=== PATIENT | male | born 1975 | race American Indian/Alaskan Native ===

== ENCOUNTER 2016-10-04 21:54 | Observation (INO) | payer OTHER ==
--- NOTE | 2016-10-04 22:57 | C.PDOC ---
History Of Present Illness 41 year old male presents to the ED with complaints of suicidal thoughts for two days but denies having a plan or homicidal ideations. Last heroin and alcohol use was two hours prior to arrival. Chief Complaint (Nursing): Psychiatric Evaluation History Per: Patient History/Exam Limitations: no limitations Onset/Duration Of Symptoms: Days (two days ) Current Symptoms Are (Timing): Still Present Suicide/Self Injury Attempted (Context): None Associated Symptoms: Suicidal Thoughts. denies: Suicidal Plan Involuntary Hold By: None Recent travel outside of the [place]: No Past Medical History Reviewed: Historical Data, Nursing Documentation, Vital Signs Vital Signs: Last Vital Signs Temp 98.5 F 10/06/16 06:58 Pulse 67 10/06/16 15:33 Resp 20 10/05/16 06:27 BP 137/75 10/06/16 15:33 Pulse Ox 99 10/06/16 06:58 - Medical History PMH: HTN Family History: States: Unknown Family Hx - Social History Hx Alcohol Use: Yes Hx Substance Use: Yes - Immunization History Hx Tetanus Toxoid Vaccination: No Hx Influenza Vaccination: No Hx Pneumococcal Vaccination: No Review Of Systems Constitutional: Negative for: Fever, Chills, Sweats Cardiovascular: Negative for: Chest Pain, Palpitations Respiratory: Negative for: Cough, Shortness of Breath Gastrointestinal: Negative for: Nausea, Vomiting, Abdominal Pain, Diarrhea Psych: Positive for: Suicidal ideation Physical Exam - Physical Exam Appears: Non-toxic, No Acute Distress Skin: Warm, Dry Head: Atraumatic Oral Mucosa: Moist Neck: Normal ROM, Supple Chest: Symmetrical, No Deformity Cardiovascular: Rhythm Regular Respiratory: No Rales, No Rhonchi, No Stridor, No Wheezing Gastrointestinal/Abdominal: Soft, No Tenderness, No Distention, No Guarding, No Rebound Extremity: Normal ROM, No Tenderness Neurological/Psych: Oriented x3 ED Course And Treatment - Laboratory Results Result Diagrams: 10/04/16 22:54 10/04/16 22:54 O2 Sat by Pulse Oximetry: 99 (room air ) Disposition Discussed With : Tiff Harley Doctor Will See Patient In The: Hospital Counseled Patient/Family Regarding: Diagnosis - Disposition Disposition: HOSPITALIZED Disposition Time: 05:57 Condition: STABLE - POA Present On Arrival: None - Clinical Impression Clinical Impression: Depression, Alcohol abuse - Scribe Statement The provider has reviewed the documentation as recorded by the Scribe Kassi [place] All medical record entries made by the Nelson were at my direction and personally dictated by me. I have reviewed the chart and agree that the record accurately reflects my personal performance of the history, physical exam, medical decision making, and the department course for this patient. I have also personally directed, reviewed, and agree with the discharge instructions and disposition.
[2016-10-04 23:01] LABS: BASO # 0.1 K/uL (0.0-0.2); BASO % 0.9 % (0.0-2.0); EOS # 0.4 K/uL (0.0-0.7); EOS % 3.2 % (0.0-4.0); HEMATOCRIT 41.1 % (35.0-51.0); LYMPH # 5.1 K/uL (1.0-4.3); LYMPH % 43.5 % (20.0-40.0); MEAN CELL VOLUME 79.8 fL (80.0-94.0); MEAN CORPUSCULAR HEMOGLOBIN 27.1 pg (27.0-31.0); MONO # 0.6 K/uL (0.0-0.8); MONO % 5.5 % (0.0-10.0); NRBC % 0.1 % (0.0-2.0); RED CELL DISTRIBUTION WIDTH 14.4 % (11.5-14.5); WHITE BLOOD COUNT 11.7 K/uL (4.8-10.8)
[2016-10-04 23:05] LABS: RBC URINE 1 /hpf (0-3); URINE BILIRUBIN NEGATIVE (NEGATIVE); URINE BLOOD NEGATIVE (NEGATIVE); URINE GLUCOSE (UA) NORMAL (Normal); URINE KETONE NEGATIVE (NEGATIVE); URINE LEUKOCYTE ESTERASE NEG Leu/uL (Negative); URINE PROTEIN 1+ mg/dL (NEGATIVE); WBC URINE 6 /hpf (0-5)
[2016-10-04 23:06] LABS: URINE COLOR YELLOW (YELLOW)
[2016-10-04 23:07] LABS: CHLORIDE 100 mmol/L (98-107); POTASSIUM 2.8 mmol/L (3.6-5.2); SODIUM 138 mmol/L (132-148)
[2016-10-04 23:09] LABS: AST/SGOT 51 U/L (17-59); BILIRUBIN,TOTAL 0.9 mg/dL (0.2-1.3); CARBON DIOXIDE 24 mmol/L (22-30); GFR AFRICAN-AMERICAN > 60
[2016-10-04 23:10] LABS: ALCOHOL SERUM 11 mg/dl (0-10); ALKALINE PHOSPHATASE 87 U/L (38-126); ALT/SGPT 77 U/L (21-72); BLOOD UREA NITROGEN 12 mg/dL (9-20); CALCIUM 8.5 mg/dl (8.6-10.4); GLUCOSE,RANDOM 106 mg/dL (75-110)
[2016-10-05 05:57] VITALS: O2SAT 99
[2016-10-06] MEDS: buPROPion 150 mg/24 Hours XL Tab PO SCH (09:27)
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
--- NOTE | 2016-10-07 01:51 | PCM.PYCHPN ---
Psychiatric Progress Note - Psychiatric Progress Note Patient seen today, length of contact: 15 MIN Patient Chief Complaint: II'M DOPE SICK! Problems Identified/Issues Discussed: WITHDRAWAL SYMPTOMS PAWS SYMPTOM MANAGEMENT Medical Problems: NOTHING ACUTE Diagnostic Results: REVIEWED DSM 5 Symptoms Update: INSOMNIA NO APPETITE Medication Change: Yes (INCREASE SEROQUEL. REMERON) Medical Record Reviewed: Yes Mental Status Examination - Cognitive Function Orientation: Person, Place, Situation, Time Memory: Intact Attention: Poor Concentration: Poor Association: WNL Fund of Knowledge: WNL - Mood Mood: Depressed, Anxious - Affect Affect: Constricted - Speech Speech: Appropriate - Formal Thought Process Formal Thought Process: No Impairment - Suicidal Ideation Suicidal Ideation: No Goal/Treatment Plan - Goal/Treatment Plan Need for Continued Stay: Discharge may exacerbated symptoms Progress Toward Problem(s) and Goals/Treatment Plan: MDD INCREASE SEROQUEL CBT GA GROUPS OPIATE WITHDRAWAL METHADONE OPIATE USE DISORDER GA CBT SUPPORTIVE PSYCHOTHERAPY ALCOHOL USE DISORDER CBT [place] SUPPORTIVE PSYCHOTHERAPY Estimated Date of D/C: 10/11/16 - Smoking Cessation Smoking Cessation Initiated: No
[2016-10-07] MEDS: buPROPion 150 mg/24 Hours XL Tab PO SCH (10:24)
--- NOTE | 2016-10-07 14:12 | PCM.PYCHPN ---
Psychiatric Progress Note - Psychiatric Progress Note Patient seen today, length of contact: 16 min Patient Chief Complaint: "You cannot rest here!!" Problems Identified/Issues Discussed: The pt is seen, chart reviewed, case discussed with staff. Support given, CBT and [place] used briefly No new symptoms reported, improving slowly and needs some more time He is irate though and claims people do not let him rest No SEs from medications, risks discussed. After care discussed Medication Change: No Medical Record Reviewed: Yes Mental Status Examination - Cognitive Function Orientation: Person, Place, Situation, Time Memory: Intact Attention: Poor Concentration: Poor Association: WNL Fund of Knowledge: WNL - Mood Mood: Depressed, Anxious - Affect Affect: Constricted - Speech Speech: Appropriate - Formal Thought Process Formal Thought Process: No Impairment - Suicidal Ideation Suicidal Ideation: No - Homicidal Ideation Homicidal Ideation: No Goal/Treatment Plan - Goal/Treatment Plan Need for Continued Stay: Discharge may exacerbated symptoms, Severe functional impairment Progress Toward Problem(s) and Goals/Treatment Plan: Support and psychoed After care by LILLIAN [place] and CBT Continue meds Attend groups Estimated Date of D/C: 10/10/16
[2016-10-08] MEDS ORDERED: buPROPion 150 mg/24 Hours XL Tab PO SCH (10:00)
--- NOTE | 2016-10-08 12:24 | PCM.PYCHPN ---
Psychiatric Progress Note - Psychiatric Progress Note Patient seen today, length of contact: 15 MIN Medication Change: No Medical Record Reviewed: Yes Mental Status Examination - Cognitive Function Orientation: Person, Place, Situation, Time Memory: Intact Attention: Poor Concentration: Poor Association: WNL Fund of Knowledge: WNL - Mood Mood: Depressed, Anxious - Affect Affect: Constricted - Speech Speech: Appropriate - Formal Thought Process Formal Thought Process: No Impairment - Suicidal Ideation Suicidal Ideation: No - Homicidal Ideation Homicidal Ideation: No Goal/Treatment Plan - Goal/Treatment Plan Need for Continued Stay: Discharge may exacerbated symptoms, Severe functional impairment Progress Toward Problem(s) and Goals/Treatment Plan: MDD Opiate withdrawal Alcohol withdrawal Opiate use disorder alcohol use disorder MDD Seroquel Remeron Wellbutrin Groups Supportive Psychotherapy Opiate withdrawal methadone Opiate use disorder mi CBT Supportive psychotherapy Alcohol use disorder CBT [place] Supportive psychotherapy Estimated Date of D/C: 10/11/16
[2016-10-09 07:41] VITALS: BP 146/86; PULSE 59; RESP 20; TEMP 97.9
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
== END 2016-10-09 09:00 | disposition home or self-care (01) ==
LOC: SUPCPDRO 21:54 → C.ER 21:54 → C.9OBSV 10-05 04:52 → C.5E 10-05 05:59
PROVIDERS: ADMIT Psychiatry & Neurology Psychiatry; ATTEND Psychiatry & Neurology Psychiatry
DX: F33.2 Major depressive disorder, recurrent severe without psychotic features (principal); G47.00 Insomnia, unspecified; I10 Essential (primary) hypertension; R45.851 Suicidal ideations; F10.230 Alcohol dependence with withdrawal, uncomplicated; F10.220 Alcohol dependence with intoxication, uncomplicated; F15.10 Other stimulant abuse, uncomplicated; F14.10 Cocaine abuse, uncomplicated; Y90.0 Blood alcohol level of less than 20 mg/100 ml; F11.23 Opioid dependence with withdrawal; F12.10 Cannabis abuse, uncomplicated
CPT/HCPCS: 80053; 81001; 85025; 99284; G0378; G0480

== ENCOUNTER 2016-10-24 13:30 | Inpatient (IN) | payer OTHER ==
[2016-10-24 13:35] VITALS: BMI 27.8
[2016-10-24 13:36] VITALS: O2SAT 98
[2016-10-24 14:14] LABS: BASO # 0.1 K/uL (0.0-0.2); EOS # 0.4 K/uL (0.0-0.7); EOS % 3.1 % (0.0-4.0); HEMOGLOBIN 15.4 g/dL (12.0-18.0); LYMPH # 3.9 K/uL (1.0-4.3); LYMPH % 33.4 % (20.0-40.0); MEAN CELL VOLUME 80.3 fL (80.0-94.0); MEAN CORPUSCULAR HEMOGLOBIN 27.4 pg (27.0-31.0); MEAN CORPUSCULAR HGB CONC 34.1 g/dL (33.0-37.0); MEAN PLATELET VOLUME 10.6 fL (7.2-11.7); MONO # 0.7 K/uL (0.0-0.8); MONO % 6.4 % (0.0-10.0); NEUT # 6.5 K/uL (1.8-7.0); NEUT % 56.1 % (50.0-75.0); NRBC % 0.2 % (0.0-2.0); RBC 5.65 Mil/uL (4.40-5.90); RED CELL DISTRIBUTION WIDTH 14.5 % (11.5-14.5); WHITE BLOOD COUNT 11.6 K/uL (4.8-10.8)
[2016-10-24 14:19] LABS: URINE BILIRUBIN NEGATIVE (NEGATIVE); URINE BLOOD NEGATIVE (NEGATIVE); URINE CLARITY Clear (Clear); URINE COLOR Amber (YELLOW); URINE GLUCOSE (UA) NORMAL (Normal); URINE LEUKOCYTE ESTERASE NEG Leu/uL (Negative); URINE NITRATE NEGATIVE (NEGATIVE); URINE PROTEIN 1+ mg/dL (NEGATIVE)
[2016-10-24 14:30] LABS: SALICYLATE < 1.0 mg/dL 1
[2016-10-24 14:31] LABS: PHENCYCLIDINE, UR NEGATIVE (NEGATIVE)
[2016-10-24 14:37] LABS: ACETAMINOPHEN < 10.0 ug/mL (10.0-30.0)
[2016-10-24 14:39] LABS: ALBUMIN 4.5 g/dL (3.5-5.0)
[2016-10-24 14:41] LABS: AST/SGOT 64 U/L (17-59); GFR AFRICAN-AMERICAN > 60; GFR NON-AFRICAN AMERICAN > 60
[2016-10-24 14:42] LABS: ALT/SGPT 84 U/L (21-72); BLOOD UREA NITROGEN 10 mg/dL (9-20); CALCIUM 9.4 mg/dl (8.6-10.4)
[2016-10-24 14:53] LABS: BARBITURATES, UR NEGATIVE (NEGATIVE)
--- NOTE | 2016-10-24 15:14 | C.PDOC ---
Time Seen by Provider: 10/24/16 13:46 Chief Complaint (Nursing): Psychiatric Evaluation History Per: Patient Onset/Duration Of Symptoms: Days Current Symptoms Are (Timing): Still Present Suicide/Self Injury Attempted (Context): None Modifying Factor(s): Alcohol, Narcotics, Crack Severity: Moderate Associated Symptoms: Depression, Suicidal Thoughts Additional History Per: Prior Records Past Medical History Reviewed: Historical Data, Nursing Documentation, Vital Signs Vital Signs: Last Vital Signs Temp 98.3 F 10/24/16 13:35 Pulse 88 10/24/16 13:35 Resp 20 10/24/16 13:35 BP 134/82 10/24/16 13:35 Pulse Ox 98 10/24/16 15:14 - Medical History PMH: Anxiety, HTN Surgical History: No Surg Hx Family History: States: Unknown Family Hx - Social History Hx Tobacco Use: Yes Hx Alcohol Use: Yes Hx Substance Use: Yes (Snorts Heroin.) - Immunization History Hx Tetanus Toxoid Vaccination: No Hx Influenza Vaccination: No Hx Pneumococcal Vaccination: No Review Of Systems Except As Marked, All Systems Reviewed And Found Negative. Constitutional: Negative for: Fever Cardiovascular: Negative for: Chest Pain Respiratory: Negative for: Shortness of Breath Gastrointestinal: Negative for: Vomiting, Abdominal Pain Musculoskeletal: Negative for: Neck Pain Skin: Negative for: Rash Neurological: Negative for: Weakness, Numbness, Seizures Psych: Negative for: Psychosis Physical Exam - Physical Exam Appears: Non-toxic, No Acute Distress Skin: Normal Color, Warm, Dry, No Rash Head: Atraumatic, Normacephalic Eye(s): bilateral: PERRL, EOMI Neck: Normal ROM, Supple Cardiovascular: Rhythm Regular Respiratory: Normal Breath Sounds, No Accessory Muscle Use Gastrointestinal/Abdominal: Soft, No Tenderness Back: No CVA Tenderness Extremity: Normal ROM Neurological/Psych: Oriented x3, Normal Motor, Normal Sensation ED Course And Treatment - Laboratory Results Result Diagrams: 10/24/16 14:09 10/24/16 14:09 O2 Sat by Pulse Oximetry: 98 Pulse Ox Interpretation: Normal Progress Note: Pt is medically stable for psychiatric admission. Disposition Counseled Patient/Family Regarding: Studies Performed, Diagnosis, Smoking Cessation - Disposition Disposition: HOSPITALIZED Disposition Time: 16:10 Condition: STABLE - Clinical Impression Clinical Impression: Depression, Polysubstance abuse Decision To Admit - Pt Status Changed To: Hospital Disposition Of: Inpatient - Admit Certification Admit to Inpatient:: After my assessment, the patient will require hospitalization for at least two midnights. This is because of the severity of symptoms shown, intensity of services needed, and/or the medical risk in this patient being treated as an outpatient. - InPatient: Physician Admission Certification: I certify that this patient requires 2 or more midnights of care for the following reason:: Psych. - . Bed Request Type: Psychiatry Admitting Physician: Stephen Billings Patient Diagnosis: Depression, Polysubstance abuse
[2016-10-24 15:50] LABS: BENZODIAZEPINES, UR POSITIVE (NEGATIVE); OPIATES, UR POSITIVE (NEGATIVE)
--- NOTE | 2016-10-25 00:28 | PCM.BM ---
Treatment Plan Problems - Problems identified on initial assessmt Depression Date Initiated: 10/24/16 Time Initiated: 17:10 Assessment reference: NA Status: Active
--- NOTE | 2016-10-25 00:28 | PCM.BM ---
<Sachin Menon - Last Filed: 10/25/16 00:28> Treatment Plan Problems - Problems identified on initial assessmt Depression Date Initiated: 10/24/16 Time Initiated: 17:10 Assessment reference: NA Status: Active Opiates abuse Date Initiated: 10/24/16 Time Initiated: 17:10 Assessment reference: NA Status: Active <Stephen Billings - Last Filed: 10/25/16 11:05> - Diagnosis (1) Polysubstance abuse Status: Acute Interventions: 10/25/16 11:05 * Assess 7x/week regarding severity of withdrawal * Educate regarding risks, benefits, side effects and alternatives of medications * Use Motivational Interviewing for abstinence * Use CBT for relapse prevention * Medication management for withdrawal symptoms * Encourage medication assisted treatment * (2) Depression Status: Acute Interventions: 10/25/16 11:06 * Assess/adjust medications daily and /or as needed * See patient on an individual basis 7x/week to assess symptoms of depression * Monitor for side effects & effectiveness of medications * <Mona Lutz - Last Filed: 10/25/16 11:10> Family Contact Family involvement: Famliy/SO not involved Family contact: Patient declines to allow family contact at present - Goals for Treatment Patient goals for treatment: No comment Discharge/Continuing Care - Education Needs Education Needs: Patient Medication, Patient Coping Skills, Patient Community resources - Discharge Discharge Criteria: Tolerates medication w/o severe side effects, Free of Suicidal thoughts, No longer exhibiting s/s of withdrawal, Reduction of target symptoms Discharge to:: Prison - Treatment Team Participation Discussed with Family/SO: No Was Patient/Family/SO present at Treatment Team Meeting: Yes
--- NOTE | 2016-10-25 13:25 | PCM.PSYCH ---
Initial Psychiatric Evaluation - Initial Psychiatric Evaluation Type of Admission: Voluntary Legal Status: Capacity Chief Complaint (in patient's own words): "I was suicidal" History of Present Illness and Precipitating Events: The pt is seen, chart reviewed, case discussed. He is known from previous admission. He is a poor historian b/c he is "withdrawing" and is irate. This is a 41 yo AAM, recently homeless b/c his mo "kicked him out" for drug use. He is positive for numerous drugs and has been in and outof detox and rehabs. His drug of choice is heroin and he uses >10 bags a day. He scores in [place]. He also feels depressed but was suicidal but he makes up sxs to get admission sometimes. Nevertheless, he reports anxiety, irritability, anhedonia, poor sleep/appetite. No AVH or del elicited. He was dx'ed with bipolar d/o, but again, the dx is iffy as he has significant drug use. Past psych hx: Admissions in the past Medical hx: HTN Family psych hx: Maternal aunt of suicide Current Medications: Active Medications Generic Name Dose Route Start Last Admin Trade Name Freq PRN Reason Stop Dose Admin Acetaminophen 650 mg 10/24/16 19:16 Tylenol 325mg Tab PO Q6 PRN Pain, moderate (4-7) Clonidine HCl 0.1 mg 10/24/16 19:11 Catapres PO Q6 PRN withdrawal Hydroxyzine HCl 50 mg 10/24/16 19:13 Atarax PO QID PRN Anxiety Methadone HCl 20 mg 10/25/16 09:30 10/25/16 09:42 Methadone PO 10/29/16 09:29 20 mg Q24H TANNA Administration Taper Mirtazapine 15 mg 10/25/16 22:00 Remeron PO HS TANNA Ondansetron HCl 4 mg 10/25/16 02:23 Zofran Tab PO Q6 PRN Nausea/Vomiting Quetiapine Fumarate 50 mg 10/25/16 18:00 Seroquel PO BID TANNA Quetiapine Fumarate 100 mg 10/25/16 22:00 Seroquel PO HS TANNA Trazodone HCl 50 mg 10/24/16 19:12 Desyrel PO HS PRN Insomnia Past Psychiatric History - Past Psychiatric History Previous Treatment History: Inpatient Pertinent Medical Hx (Current Medical&Sleep Prob, Allergies): Allergies Allergy/AdvReac Type Severity Reaction Status Date / Time No Known Allergies Allergy Verified 10/24/16 13:48 Mirtazapine [Remeron] 15 mg PO HS #30 tab 10/08/16 QUEtiapine [Seroquel] 300 mg PO HS #30 tab 10/08/16 buPROPion XL [Wellbutrin XL] 300 mg PO DAILY #30 t24 10/08/16 traZODone [Desyrel] 100 mg PO HS PRN #30 tab 10/08/16 Review of Systems - Psychiatric Psychiatric: Abnormal Sleep Pattern, Anhedonia, Anxiety, Depression, Difficulty Concentrating, Irritability. absent: Hallucinations, Homicidal Ideation, Paranoia, Suicidal Ideation Mental Status Examination - Personal Presentation Personal Presentation: Looks older than stated age - Affect Affect: Constricted - Motor Activity Motor Activity: Calm - Reliability in Providing Information Reliability in Providing Information: Fair - Speech Speech: Organized - Mood Mood: Anxious - Formal Thought Process Formal Thought Process: No Impairment - Cognitive Functions Orientation: Person, Place, Situation, Time Sensorium: Alert Attention/Concentration: Easily distracted Estimate of Intelligence: Average Judgement: Intact, as evidence by: Insight regarding need for hospitalization Memory: Recent intact, as evidence by: Ability to recall events of the day, Remote impaired as evidenced by: Inability to recall sig life events - Risk Risk: Withdrawal, Diminished functioning - Strength & Assets Inventory Strength & Assets Inventory: Cooperative - Limitations Limitations: Living alone DSM 5 DX - DSM 5 DSM 5 Diagnosis: Major depression, recurrent, severe r/o subtance-induced depression Opioid withdrawal Opioid use d/o - severe Cocaine use d/o - sevre Sedative, hypnotic and alcohol use disorders, both severe Personality d/o - unspecified - Recommended/Plan of Treatment Treatment Recommendations and Plan of Treatment: Methadone detox As needed meds and vitamins Attend groups and activities HI for abstinence and CBT for relapse prevention Support and psychoeducation Consider and encourage MAT Refer to after care Remeron and seroquel for depression and mood swings Indiv tx 33 min Projected ELOS: 4-5 days Prognosis: fair Discharge Plan and Discharge Criteria: No wdw sxs, no SI or anger/severe dep refer to rehab, and then MAT - Smoking Cessation Smoking Cessation Initiated: Yes
--- NOTE | 2016-10-26 11:10 | PCM.PYCHPN ---
Psychiatric Progress Note - Psychiatric Progress Note Patient seen today, length of contact: 17 min Patient Chief Complaint: I am feeling depressed. Problems Identified/Issues Discussed: Patient seen and evaluated, chart reviewed and discussed with the nurse. Patient remained isolated, confined and withdrawn. Patient reports withdrawal symptoms including nausea, headaches, cramps and sweating. He reports depressed mood but denies any feelings of hopelessness and helplessness. He is taking medication and denied any side effects. Supportive therapy and psychoeducation were given. Medication Change: Yes (Methadone taper) Medical Record Reviewed: Yes Mental Status Examination - Cognitive Function Orientation: Person, Place, Situation, Time Memory: Intact Attention: WNL Concentration: Poor Association: WNL Fund of Knowledge: Poor - Mood Mood: Anxious - Affect Affect: Constricted - Speech Speech: Soft - Formal Thought Process Formal Thought Process: No Impairment - Suicidal Ideation Suicidal Ideation: No - Homicidal Ideation Homicidal Ideation: No Goal/Treatment Plan - Goal/Treatment Plan Need for Continued Stay: Discharge may exacerbated symptoms, Severe functional impairment Progress Toward Problem(s) and Goals/Treatment Plan: Major depression, recurrent, severe r/o subtance-induced depression Opioid withdrawal Opioid use d/o - severe Cocaine use d/o - sevre Sedative, hypnotic and alcohol use disorders, both severe Personality d/o - unspecified Methadone detox As needed meds and vitamins Attend groups and activities IN for abstinence and CBT for relapse prevention Support and psychoeducation Consider and encourage MAT Refer to after care [facility] for depression and mood swings Indiv tx - Smoking Cessation Smoking Cessation Initiated: No
[2016-10-27 10:00] VITALS: BP 131/86; PULSE 80; RESP 18; TEMP 98.5
--- NOTE | 2016-10-27 10:42 | PCM.PYCHPN ---
Mental Status Examination - Cognitive Function Orientation: Person, Place, Situation, Time - Mood Mood: Anxious - Affect Affect: Constricted - Formal Thought Process Formal Thought Process: No Impairment - Homicidal Ideation Homicidal Ideation: No
--- NOTE | 2016-10-27 12:06 | PCM.PYCHDC ---
Mental Status Examination - Mental Status Examination Orientation: Person, Place, Situation, Time Memory: Intact Mood: Neutral Affect: Constricted Speech: Soft Attention: WNL Concentration: WNL Association: WNL Fund of Knowledge: WNL Formal Thought Process: No Impairment Description of patient's judgement and insight: good, fair Psychotic Thoughts and Behaviors: denies any AVH Suicidal Ideation: No Current Homicidal Ideation?: No Discharge Summary - Discharge Note Reason for Hospitalization: The pt is seen, chart reviewed, case discussed. He is known from previous admission. He is a poor historian b/c he is "withdrawing" and is irate. This is a 41 yo AAM, recently homeless b/c his mo "kicked him out" for drug use. He is positive for numerous drugs and has been in and outof detox and rehabs. His drug of choice is heroin and he uses >10 bags a day. He scores in COWS. He also feels depressed but was suicidal but he makes up sxs to get admission sometimes. Nevertheless, he reports anxiety, irritability, anhedonia, poor sleep/appetite. No AVH or del elicited. He was dx'ed with bipolar d/o, but again, the dx is iffy as he has significant drug use. Consultations:: List each consultation separately and include: 1. Reason for request. 2. Findings. 3. Follow-up Summary of Hospital Course include:: 1. Description of specific treatment plan utilized for patients during their course of treatmen. 2. Summarize the time- course for resolution of acute symptoms and/or regressed behaviors. 3. Describe issues identified and worked on during hospitalization. 4. Describe medication utilized. 5. Describe medical problems identified and treated. 6. Reassessment of suicide risk Summary of Hospital Course: During the course of his stay, patient (pt) started progressively improving and he no longer remained irritable, depressed, and suicidal. His mood and withdrawal symptoms were improved and he started attending groups and meetings and started socializing. Patient denied any feelings of hopelessness, helplessness, and worthlessness, denied any problem with the sleep or appetite, denied suicidal ideation or homicidal ideation. Pt denied any auditory or visual hallucinations. Some changes were made in his current medications and patient was discharged on following medications. He tolerated these medications very well and denied any side effects. - Final Diagnosis (DSM 5) Condition upon Discharge: STABLE DSM 5: Major depression, recurrent, severe r/o subtance-induced depression Opioid withdrawal Opioid use d/o - severe Cocaine use d/o - sevre Sedative, hypnotic and alcohol use disorders, both severe Personality d/o - unspecified Disposition: HOME/ ROUTINE Follow-up Treatment Plan: Education: Pt was educated and counseled about the risks and benefits of taking and not taking medications. Pt was educated and counseled about the risks of drinking and abusing drugs. Pt was educated and counseled to go to the ER or call 911 if pt develop suicidal ideation or homicidal ideation, worsening of symptoms or severe side effects of the meds. Prescriptions/Medication Reconciliation: Mirtazapine [Remeron] 15 mg PO HS #30 tab QUEtiapine [Seroquel] 100 mg PO HS #30 tab QUEtiapine [SEROquel] 50 mg PO BID #60 tab traZODone [Desyrel] 50 mg PO HS PRN #30 tab PRN Reason: Insomnia - Smoking Cessation Smoking Cessation Medication prescribed: No - Antipsychotic Medications Pt discharged on 2 or more routine antipsychotic medications: No
== END 2016-10-27 12:15 | disposition home or self-care (01) | DRG 744 ==
LOC: C.ER 13:30 → C.5E 16:11
PROVIDERS: ADMIT Psychiatry & Neurology Psychiatry; ATTEND Psychiatry & Neurology Psychiatry
PROC: HZ37ZZZ Individual Counseling for Substance Abuse Treatment, Motivational Enhancement (ICD-10-PCS; principal; 2016-10-24)
PROC: HZ32ZZZ Individual Counseling for Substance Abuse Treatment, Cognitive-Behavioral (ICD-10-PCS; 2016-10-24)
PROC: HZ52ZZZ Individual Psychotherapy for Substance Abuse Treatment, Cognitive-Behavioral (ICD-10-PCS; 2016-10-24)
PROC: HZ59ZZZ Individual Psychotherapy for Substance Abuse Treatment, Supportive (ICD-10-PCS; 2016-10-24)
PROC: HZ56ZZZ Individual Psychotherapy for Substance Abuse Treatment, Psychoeducation (ICD-10-PCS; 2016-10-24)
PROC: HZ2ZZZZ Detoxification Services for Substance Abuse Treatment (ICD-10-PCS; 2016-10-24)
DX: F11.23 Opioid dependence with withdrawal (principal); F33.2 Major depressive disorder, recurrent severe without psychotic features; F10.20 Alcohol dependence, uncomplicated; F13.20 Sedative, hypnotic or anxiolytic dependence, uncomplicated; F14.90 Cocaine use, unspecified, uncomplicated; I10 Essential (primary) hypertension; F41.9 Anxiety disorder, unspecified; Z59.0 Homelessness

== ENCOUNTER 2016-12-24 21:40 | Inpatient (IN) | payer MEDICAID, OTHER ==
[2016-12-24 21:41] VITALS: BMI 27.8
[2016-12-24 22:25] LABS: BASO # 0.1 K/uL (0.0-0.2); BASO % 1.3 % (0.0-2.0); EOS # 0.5 K/uL (0.0-0.7); EOS % 4.6 % (0.0-4.0); HEMATOCRIT 42.2 % (35.0-51.0); LYMPH # 5.6 K/uL (1.0-4.3); LYMPH % 46.6 % (20.0-40.0); MEAN CELL VOLUME 80.2 fL (80.0-94.0); MEAN CORPUSCULAR HEMOGLOBIN 27.4 pg (27.0-31.0); MEAN CORPUSCULAR HGB CONC 34.2 g/dL (33.0-37.0); MEAN PLATELET VOLUME 11.3 fL (7.2-11.7); MONO # 0.5 K/uL (0.0-0.8); MONO % 4.5 % (0.0-10.0); NRBC % 0.2 % (0.0-2.0); RED CELL DISTRIBUTION WIDTH 14.3 % (11.5-14.5)
[2016-12-24 22:27] LABS: RBC URINE 1 /hpf (0-3); URINE BILIRUBIN NEGATIVE (NEGATIVE); URINE BLOOD NEGATIVE (NEGATIVE); URINE COLOR Yellow (YELLOW); URINE GLUCOSE (UA) NORMAL (Normal); URINE KETONE NEGATIVE (NEGATIVE); URINE LEUKOCYTE ESTERASE NEG Leu/uL (Negative); URINE PROTEIN NEGATIVE (NEGATIVE); WBC URINE < 1 /hpf (0-5)
[2016-12-24 22:35] LABS: CHLORIDE 102 mmol/L (98-107); POTASSIUM 4.1 mmol/L (3.6-5.2); SODIUM 142 mmol/L (132-148)
[2016-12-24 22:37] LABS: AST/SGOT 81 U/L (17-59); BILIRUBIN,TOTAL 0.8 mg/dL (0.2-1.3); CARBON DIOXIDE 28 mmol/L (22-30); GFR AFRICAN-AMERICAN > 60
[2016-12-24 22:38] LABS: ALB/GLOB RATIO 1.1 (1.0-2.1); ALKALINE PHOSPHATASE 94 U/L (38-126); ALT/SGPT 82 U/L (21-72); BLOOD UREA NITROGEN 8 mg/dL (9-20); CALCIUM 9.1 mg/dl (8.6-10.4); GLUCOSE,RANDOM 74 mg/dL (75-110); TOTAL PROTEIN 8.4 g/dL (6.3-8.3)
[2016-12-24 22:39] LABS: ALCOHOL SERUM 89 mg/dl (0-10)
--- NOTE | 2016-12-24 22:57 | C.PDOC ---
History Of Present Illness 41 y/o male presents to the ED for psychiatric evaluation. Patient admits to suicidal ideation for 2 days and plan to shoot himself. Patient admits to alcohol, cocaine and heroin use earlier today. He denies homicidal ideation and has no physical complaints at this time. Time Seen by Provider: 12/24/16 21:51 Chief Complaint (Nursing): Psychiatric Evaluation History Per: Patient History/Exam Limitations: no limitations Onset/Duration Of Symptoms: Days (2) Current Symptoms Are (Timing): Still Present Suicide/Self Injury Attempted (Context): None Modifying Factor(s): Alcohol, Cocaine, Other (heroin ) Associated Symptoms: Suicidal Thoughts, Suicidal Plan Involuntary Hold By: None Recent travel outside of the [place]: No Additional History Per: Patient Past Medical History Reviewed: Historical Data, Nursing Documentation, Vital Signs Vital Signs: Last Vital Signs Temp 98.1 F 12/26/16 07:27 Pulse 58 L 12/26/16 07:27 Resp 19 12/26/16 07:27 BP 130/80 12/26/16 07:27 Pulse Ox 95 12/25/16 15:54 - Medical History PMH: Anxiety, HTN Denies: Diabetes, Hepatitis, HIV, Seizures, Sexually Transmitted Disease Surgical History: No Surg Hx - [facility] Procedures DETOXIFICATION SERVICES FOR SUBSTANCE ABUSE TREATMENT (10/24/16) INDIV BAILING MACHINE OPERATOR FOR SUBSTANCE ABUSE, COGNITIVE BEHAVIORAL (10/24/16) INDIV BAILING MACHINE OPERATOR FOR SUBSTANCE ABUSE, MOTIVATIONAL ENHANCE (10/24/16) INDIV PSYCHOTHERAPY FOR SUBSTANCE ABUSE TREATMENT, SUPPORT (10/24/16) INDIV PSYCHOTHERAPY FOR SUBSTANCE ABUSE, COGNITIV BEHAVIORAL (10/24/16) INDIV PSYCHOTHERAPY FOR SUBSTANCE ABUSE, PSYCHOEDUCATION (10/24/16) Family History: States: Unknown Family Hx - Social History Hx Tobacco Use: Yes Hx Alcohol Use: Yes Hx Substance Use: Yes - Immunization History Hx Tetanus Toxoid Vaccination: No Hx Influenza Vaccination: No Hx Pneumococcal Vaccination: No Review Of Systems Psych: Positive for: Suicidal ideation (with plan ). Negative for: Other ( homicidal ideation ) Physical Exam - Physical Exam Appears: Non-toxic, No Acute Distress Skin: Normal Color, Warm, Dry Head: Atraumatic, Normacephalic Eye(s): bilateral: Normal Inspection Oral Mucosa: Moist Neck: Supple Chest: Symmetrical, No Deformity, No Tenderness Cardiovascular: Rhythm Regular, No Murmur Respiratory: Normal Breath Sounds, No Rales, No Rhonchi, No Wheezing Extremity: Normal ROM, Capillary Refill (less than 2 seconds ) Neurological/Psych: Normal Speech, Normal Cognition Gait: Steady ED Course And Treatment - Laboratory Results Result Diagrams: 12/24/16 22:22 12/24/16 22:22 O2 Sat by Pulse Oximetry: 98 (on RA) Pulse Ox Interpretation: Normal Medical Decision Making Medical Decision Making: Impression: 41y/o male with suicidal ideation and plan Progress: labs, CXR ordered and reviewed. 23:55 Patient has been medically cleared. 00:55 Patient has been accepted under Dr. Torre's service. Disposition - Disposition Disposition: HOSPITALIZED Disposition Time: 01:00 Condition: STABLE - Clinical Impression Clinical Impression: Depression - Scribe Statement The provider has reviewed the documentation as recorded by the Scribe (Shanell Ruby) Provider Attestation: All medical record entries made by the Scribe were at my direction and personally dictated by me. I have reviewed the chart and agree that the record accurately reflects my personal performance of the history, physical exam, medical decision making, and the department course for this patient. I have also personally directed, reviewed, and agree with the discharge instructions and disposition. Decision To Admit - Pt Status Changed To: Hospital Disposition Of: Inpatient - Admit Certification Admit to Inpatient:: After my assessment, the patient will require hospitalization for at least two midnights. This is because of the severity of symptoms shown, intensity of services needed, and/or the medical risk in this patient being treated as an outpatient. - InPatient: Physician Admission Certification: I certify that this patient requires 2 or more midnights of care for the following reason:: needs inpt pssch - . Bed Request Type: Psychiatry Admitting Physician: King Torre Patient Diagnosis: Depression
--- NOTE | 2016-12-24 23:37 | RAD ---
EXAM: XR Chest, 1 View CLINICAL HISTORY: 41 years old, male; Pain; Chest pain and other: Pysch TECHNIQUE: Frontal view of the chest. COMPARISON: No relevant prior studies available. FINDINGS: Lungs: Unremarkable. No consolidation. Pleural space: Unremarkable. No pneumothorax. Heart: Unremarkable. No cardiomegaly. Mediastinum: Unremarkable. Bones/joints: Unremarkable. IMPRESSION: No acute findings.
[2016-12-25] MEDS ORDERED: Pneumococcal 23-Valent Vaccine IM ONE (03:12)
--- NOTE | 2016-12-25 10:37 | PCM.BM ---
<Marybeth Badillo - Last Filed: 12/25/16 10:33> Treatment Plan Problems - Problems identified on initial assessmt Depression Date Initiated: 12/25/16 Time Initiated: 10:34 Assessment reference: NA Status: Active Substance Abuse Date Initiated: 12/25/16 Time Initiated: 10:34 Assessment reference: NA Status: Active Treatment assets and liabiliti Patient Assests: cooperative, ADL independent, physically healthy, negotiates basic needs Patient Liabilities: live alone, financial problems, poor support system, substance abuse (ETOH, Cocaine, Heroin) - Milieu Protocol Maintain good personal hygiene: daily Encourage regular showers, daily Remind patient to perform daily oral care, other Assist patient to perform ADL's (Self) Conduct patient checks and document Observation sheet: Q15 minutes (safety) Maintain personal safety: every shift Educate patient to report safety concerns to staff, every shift Monitor environment for contraband/sharps Medication safety: Monitor for expected outcome, potential side effects: every shift, Assess barriers to learning: every shift, Assess readiness for medication education: every shift <King Torre - Last Filed: 12/25/16 11:15> - Diagnosis (1) Depression Status: Acute Interventions: 12/25/16 11:15 * Assess/adjust medications daily and /or as needed * See patient on an individual basis 7x/week to assess level of depressive behaviors and stability * Discuss risks, benefits, side effects and alternatives of medications * (2) Opioid use disorder, severe, dependence Status: Acute Interventions: 12/25/16 11:16 * Assess 7x/week regarding severity of withdrawal * Educate regarding risks, benefits, side effects and alternatives of medications * Use Motivational Interviewing for abstinence * Use CBT for relapse prevention * Medication management for withdrawal symptoms * Encourage medication assisted treatment * <Mona Lutz - Last Filed: 12/25/16 11:21> Family Contact Family involvement: Famliy/SO not involved - Goals for Treatment Patient goals for treatment: "I want to go to rehab." Discharge/Continuing Care - Education Needs Education Needs: Patient Medication, Patient Coping Skills, Patient Placement options, Patient Community resources - Discharge Discharge Criteria: Tolerates medication w/o severe side effects, No longer exhibiting s/s of withdrawal Discharge to:: Substance Abuse Rehab - Treatment Team Participation Discussed with Family/SO: No Was Patient/Family/SO present at Treatment Team Meeting: Yes
--- NOTE | 2016-12-25 10:52 | PCM.PSYCH ---
Initial Psychiatric Evaluation - Initial Psychiatric Evaluation Type of Admission: Voluntary Legal Status: Capacity Chief Complaint (in patient's own words): I want to hurt myself. History of Present Illness and Precipitating Events: The pt. is seen, chart reviewed, case discussed. This is a 41 y/o male who presented to ED for having suicidal ideation, with s plan to shoot himself with a gun. As per the ED noted, pt reported the following: "Me and my got into it again because I started using again" (Pt relapsed back onto ETOH, IV heroin, and crack cocaine one month ago); Pt expressed feelings of anhedonia/helplessness; Pt stated: "She kicked me out of the house;" She won't let me see my son;" I'm so depressed now; " I'm just a junkie;" I'm ready to end it;" I don't want to lose my son and " I'm no good;" Pt admits to having thoughts of suicide for the past "3days"; Pt has had idx to shoot himself in the mouth with a gun; Pt had similar suicidal idx approximately 2months ago; Pt denied owning a gun, but stated he has access to same via his "friends"; Pt has no prior hx of suicide attempts. Pt. reports he is tired of getting high from all the stress. Pt. reports to using 20 bags of heroin IV for the past 2 weeks. He started heroin at the age of 17. The longest period of sobriety was 3 years, and the reason for relapse was boredom. Pt. also reports to using cocaine two, $20 bags daily. Pt. also reports to using marijuana 1 bag daily and smokes 7 cigarettes daily. Pt. denies use of alcohol. Pt. is known from previous admission here at [facility] 2 months ago. Pt. reports he stopped taking the medications after discharge. Pt. denies history of detox or rehab. Pt. currently reports of having withdrawal sxs.--n/v, muscle pain, inability to sleep. Pt. also admits to being anxious and irritable. Pt. denies visual and auditory hallucinations and denies suicidal and homicidal ideation. He also denies having paranoia or delusions. Pt. claims sometimes his head races and paces, and he just wants to leave after treatment. After care discussed. Pt. is open to attending rehab after discharge. Medications: denies Allergies: denies PMHx: denies Family Psych/Med Hx: denies Past Psych Hx: psych inpatient here two months ago; denies detox or rehab Social Hx: ; lives with mom; 1 child (22 y/o male), taken care of his ; currently unemployed, makes living by [facility]. Past Psychiatric History - Past Psychiatric History Previous Treatment History: Inpatient Pertinent Medical Hx (Current Medical&Sleep Prob, Allergies): Allergies Allergy/AdvReac Type Severity Reaction Status Date / Time No Known Allergies Allergy Verified 10/24/16 13:48 No Known Home Med 12/24/16 Review of Systems - Review of Systems All systems: reviewed and no additional remarkable complaints except - Neurological Neurological: UNREMARKABLE - Psychiatric Psychiatric: Anxiety, Irritability. absent: Auditory Hallucinations, Homicidal Ideation, Paranoia, Suicidal Ideation, Visual Hallucinations Mental Status Examination - Personal Presentation Personal Presentation: Looks stated age - Affect Affect: Constricted - Motor Activity Motor Activity: Calm - Reliability in Providing Information Reliability in Providing Information: Good - Speech Speech: Organized - Mood Mood: Anxious - Formal Thought Process Formal Thought Process: No Impairment - Obsessions/Compulsions Obsessions: No Compulsions: No - Cognitive Functions Orientation: Person, Place, Situation, Time Sensorium: Alert Attention/Concentration: Attentive Abstract Thinking: [place] Estimate of Intelligence: Below average Judgement: Imparied, as evidence by: Poor judgement, Imparied, as evidence by: Lack of insight into illness, Intact, as evidence by: Insight regarding need for hospitalization Memory: Recent intact, as evidence by: Ability to recall events of the day - Risk Risk: Suicidal, Withdrawal, Diminished functioning - Limitations Limitations: Other (Unemployed) DSM 5 DX - DSM 5 DSM 5 Diagnosis: Major depression, recurrent, severe without psychotic features Opioid withdrawal Opioid use d/o-severe Cocaine use d/o-severe - Recommended/Plan of Treatment Treatment Recommendations and Plan of Treatment: Major depression, recurrent, severe without psychotic features CBT Psychoeducation Trazodone 50 mg pO QHS Zoloft 50 mg PO Daily Neurontin 100 mg pO TID Opioid use d/o-severe CBT for relapse prevention Psychoeducation Supportive therapy, individual therapy Use [place] for abstinence Opioid withdrawal Methadone taper Support and psychoeducation daily Attend group activities daily Consider and encourage MAT Refer to after care. Pt. is interested in finding rehab. Cocaine use d/o-severe CBT for relapse prevention Psychoeducation Supportive therapy, individual therapy Use [place] for abstinence Projected ELOS: 6-7 days - Smoking Cessation Smoking Cessation Initiated: No
[2016-12-25] MEDS ORDERED: Aluminum Hydroxide/Magnesium Hydroxide Susp (30 mL) PO PRN (10:53)
[2016-12-26 07:27] VITALS: BP 130/80; PULSE 58; RESP 19; TEMP 98.1
--- NOTE | 2016-12-26 09:33 | PCM.PYCHPN ---
Psychiatric Progress Note - Psychiatric Progress Note Patient Chief Complaint: I want to hurt myself. Mental Status Examination - Cognitive Function Orientation: Person, Place, Situation, Time - Mood Mood: Anxious - Affect Affect: Constricted - Formal Thought Process Formal Thought Process: No Impairment - Homicidal Ideation Homicidal Ideation: No Goal/Treatment Plan - Goal/Treatment Plan Progress Toward Problem(s) and Goals/Treatment Plan: Major depression, recurrent, severe without psychotic features CBT Psychoeducation Trazodone 50 mg pO QHS Zoloft 50 mg PO Daily Neurontin 100 mg pO TID Opioid use d/o-severe CBT for relapse prevention Psychoeducation Supportive therapy, individual therapy Use [facility] for abstinence Opioid withdrawal Methadone taper Support and psychoeducation daily Attend group activities daily Consider and encourage MAT Refer to after care. Pt. is interested in finding rehab. Cocaine use d/o-severe CBT for relapse prevention Psychoeducation Supportive therapy, individual therapy Use [facility] for abstinence
--- NOTE | 2016-12-26 22:31 | PCM.PYCHDC ---
Mental Status Examination - Mental Status Examination Orientation: Person, Place, Situation, Time Memory: Intact Mood: Neutral Affect: Constricted Speech: Soft Attention: WNL Concentration: WNL Association: WNL Fund of Knowledge: WNL Formal Thought Process: No Impairment Description of patient's judgement and insight: partially impaired Psychotic Thoughts and Behaviors: denies any AVH Suicidal Ideation: No Current Homicidal Ideation?: No Discharge Summary - Discharge Note Reason for Hospitalization: The pt. is seen, chart reviewed, case discussed. This is a 41 y/o male who presented to ED for having suicidal ideation, with s plan to shoot himself with a gun. As per the ED noted, pt reported the following: "Me and my got into it again because I started using again" (Pt relapsed back onto ETOH, IV heroin, and crack cocaine one month ago); Pt expressed feelings of anhedonia/helplessness; Pt stated: "She kicked me out of the house;" She won't let me see my son;" I'm so depressed now; " I'm just a junkie;" I'm ready to end it;" I don't want to lose my son and " I'm no good;" Pt admits to having thoughts of suicide for the past "3days"; Pt has had idx to shoot himself in the mouth with a gun; Pt had similar suicidal idx approximately 2months ago; Pt denied owning a gun, but stated he has access to same via his "friends"; Pt has no prior hx of suicide attempts. Pt. reports he is tired of getting high from all the stress. Pt. reports to using 20 bags of heroin IV for the past 2 weeks. He started heroin at the age of 17. The longest period of sobriety was 3 years, and the reason for relapse was boredom. Pt. also reports to using cocaine two, $20 bags daily. Pt. also reports to using marijuana 1 bag daily and smokes 7 cigarettes daily. Pt. denies use of alcohol. Pt. is known from previous admission here at [facility] 2 months ago. Pt. reports he stopped taking the medications after discharge. Pt. denies history of detox or rehab. Pt. currently reports of having withdrawal sxs.--n/v, muscle pain, inability to sleep. Pt. also admits to being anxious and irritable. Pt. denies visual and auditory hallucinations and denies suicidal and homicidal ideation. He also denies having paranoia or delusions. Pt. claims sometimes his head races and paces, and he just wants to leave after treatment. Consultations:: List each consultation separately and include: 1. Reason for request. 2. Findings. 3. Follow-up Summary of Hospital Course include:: 1. Description of specific treatment plan utilized for patients during their course of treatmen. 2. Summarize the time- course for resolution of acute symptoms and/or regressed behaviors. 3. Describe issues identified and worked on during hospitalization. 4. Describe medication utilized. 5. Describe medical problems identified and treated. 6. Reassessment of suicide risk Summary of Hospital Course: During the course of his stay, patient (pt) started progressively improving and he no longer remained irritable, depressed, and suicidal. His mood started improving and he started attending groups and meetings and started socializing. Pt mentioned that he came here 2 nights ago and he has to appear today in front of the Probation Offficer. He signed out AMA, by saying, he is getting medications and he is feeling better. He denied any feelings of hopelessness, helplessness, and worthlessness, denied any problem with the sleep or appetite, denied suicidal ideation or homicidal ideation. Pt denied any auditory or visual hallucinations. He tolerated the medications very well and denied any side effects. - Diagnosis (1) Depression Status: Acute (2) Opioid use disorder, severe, dependence Status: Acute - Final Diagnosis (DSM 5) Condition upon Discharge: STABLE DSM 5: Major depression, recurrent, severe without psychotic features Opioid use d/o-severe Opioid withdrawal Cocaine use d/o-severe Disposition: AGAINST MEDICAL ADVICE Follow-up Treatment Plan: Education: Pt was educated and counseled about the risks and benefits of taking and not taking medications. Pt was educated and counseled about the risks of drinking and abusing drugs. Pt was educated and counseled to go to the ER or call 911 if pt develop suicidal ideation or homicidal ideation, worsening of symptoms or severe side effects of the meds. - Smoking Cessation Smoking Cessation Medication prescribed: No - Antipsychotic Medications Pt discharged on 2 or more routine antipsychotic medications: No
[2016-12-27 08:03] VITALS: O2SAT 98
== END 2016-12-26 12:35 | disposition left against medical advice (07) | DRG 430 ==
LOC: C.ER 21:40 → C.5E 12-25 00:54
PROVIDERS: ADMIT Psychiatry & Neurology Psychiatry; ATTEND Psychiatry & Neurology Psychiatry
PROC: GZ3ZZZZ Medication Management (ICD-10-PCS; principal; 2016-12-25)
PROC: GZ56ZZZ Individual Psychotherapy, Supportive (ICD-10-PCS; 2016-12-25)
PROC: HZ2ZZZZ Detoxification Services for Substance Abuse Treatment (ICD-10-PCS; 2016-12-25)
PROC: HZ59ZZZ Individual Psychotherapy for Substance Abuse Treatment, Supportive (ICD-10-PCS; 2016-12-25)
DX: F33.2 Major depressive disorder, recurrent severe without psychotic features (principal); R45.851 Suicidal ideations; F11.23 Opioid dependence with withdrawal; F14.90 Cocaine use, unspecified, uncomplicated; F12.90 Cannabis use, unspecified, uncomplicated; I10 Essential (primary) hypertension; F17.210 Nicotine dependence, cigarettes, uncomplicated; G47.00 Insomnia, unspecified; Z79.899 Other long term (current) drug therapy

== ENCOUNTER 2017-11-20 21:28 | Inpatient (IN) | payer MEDICAID ==
[2017-11-20 21:28] VITALS: BMI 27.8
--- NOTE | 2017-11-20 22:44 | C.PDOC ---
History Of Present Illness The patient presents to the ED for psychiatric evaluation of suicidal ideation. Patient states, " I am tired of life." Contrary to triage, patient denies suicidal plan. He does not have any physical complaints at this time. Time Seen by Provider: 11/20/17 22:43 Chief Complaint (Nursing): Psychiatric Evaluation History Per: Patient History/Exam Limitations: no limitations Onset/Duration Of Symptoms: Hrs Current Symptoms Are (Timing): Still Present Suicide/Self Injury Attempted (Context): None Modifying Factor(s): None Severity: None Pain Scale Rating Of: 0 Associated Symptoms: Suicidal Thoughts. denies: Suicidal Plan Involuntary Hold By: None Recent travel outside of the [place]: No Additional History Per: Patient Past Medical History Reviewed: Historical Data, Nursing Documentation, Vital Signs Vital Signs: Last Vital Signs Temp 98.9 F 11/21/17 00:25 Pulse 83 11/21/17 00:25 Resp 16 11/21/17 00:25 BP 143/81 11/21/17 00:25 Pulse Ox 98 11/21/17 00:25 - Medical History PMH: Anxiety, Depression, HTN Denies: Diabetes, Hepatitis, HIV, Chronic Kidney Disease, Seizures, Sexually Transmitted Disease Surgical History: No Surg Hx - [facility] Procedures DETOXIFICATION SERVICES FOR SUBSTANCE ABUSE TREATMENT (12/25/16) INDIV CLIP RIVETER FOR SUBSTANCE ABUSE, COGNITIVE BEHAVIORAL (10/24/16) INDIV CLIP RIVETER FOR SUBSTANCE ABUSE, MOTIVATIONAL ENHANCE (10/24/16) INDIV PSYCHOTHERAPY FOR SUBSTANCE ABUSE TREATMENT, SUPPORT (12/25/16) INDIV PSYCHOTHERAPY FOR SUBSTANCE ABUSE, COGNITIV BEHAVIORAL (10/24/16) INDIV PSYCHOTHERAPY FOR SUBSTANCE ABUSE, PSYCHOEDUCATION (10/24/16) INDIVIDUAL PSYCHOTHERAPY, SUPPORTIVE (12/25/16) MEDICATION MANAGEMENT (12/25/16) Family History: States: Unknown Family Hx - Social History Hx Tobacco Use: Yes Hx Alcohol Use: Yes Hx Substance Use: Yes - Immunization History Hx Tetanus Toxoid Vaccination: No Hx Influenza Vaccination: No Hx Pneumococcal Vaccination: No Review Of Systems Constitutional: Negative for: Fever, Chills Cardiovascular: Negative for: Chest Pain, Palpitations Respiratory: Negative for: Cough, Shortness of Breath Gastrointestinal: Negative for: Nausea, Vomiting Skin: Negative for: Rash, Lesions, Jaundice, Bruising Psych: Positive for: Suicidal ideation. Negative for: Other (suicidal plan ) Physical Exam - Physical Exam Appears: Non-toxic, No Acute Distress Skin: Warm, Dry Head: Normacephalic Eye(s): bilateral: Normal Inspection Chest: Symmetrical, No Deformity Cardiovascular: Rhythm Regular Respiratory: No Accessory Muscle Use Extremity: Normal ROM Neurological/Psych: Oriented x3 ED Course And Treatment - Laboratory Results Result Diagrams: 11/20/17 22:52 11/20/17 22:52 O2 Sat by Pulse Oximetry: 96 (on RA) Pulse Ox Interpretation: Normal Progress Note: Bloodwork and urinalysis ordered. Disposition Discussed With Dr.: King Torre Comment: accepted the pt on his servie and took over the care at 12:17 AM Doctor Will See Patient In The: Hospital Counseled Patient/Family Regarding: Studies Performed, Diagnosis - Disposition Disposition: HOSPITALIZED Disposition Time: 22:44 Condition: FAIR - POA Present On Arrival: None - Clinical Impression Clinical Impression: Opioid use disorder, severe, dependence, Major depression, Polysubstance abuse - Scribe Statement The provider has reviewed the documentation as recorded by the Scribe (Shanell Ruby) Provider Attestation: All medical record entries made by the Scribe were at my direction and personally dictated by me. I have reviewed the chart and agree that the record accurately reflects my personal performance of the history, physical exam, medical decision making, and the department course for this patient. I have also personally directed, reviewed, and agree with the discharge instructions and disposition. Decision To Admit - Pt Status Changed To: Hospital Disposition Of: Inpatient - Admit Certification Admit to Inpatient:: After my assessment, the patient will require hospitalization for at least two midnights. This is because of the severity of symptoms shown, intensity of services needed, and/or the medical risk in this patient being treated as an outpatient. - InPatient: Physician Admission Certification: I certify that this patient requires 2 or more midnights of care for the following reason:: After my assessment, the patient will require hospitalization for at least two midnights. This is because of the severity of symptoms shown, intensity of services needed, and/or the medical risk in this patient being treated as an outpatient. - . Bed Request Type: Psychiatry Admitting Physician: King Torre Patient Diagnosis: Opioid use disorder, severe, dependence, Major depression, Polysubstance abuse
[2017-11-20 22:56] LABS: BASO # 0.1 K/uL (0.0-0.2); BASO % 0.8 % (0.0-2.0); EOS # 0.4 K/uL (0.0-0.7); EOS % 3.4 % (0.0-4.0); HEMOGLOBIN 12.9 g/dL (12.0-18.0); LYMPH # 4.5 K/uL (1.0-4.3); MEAN CELL VOLUME 76.9 fL (80.0-94.0); MEAN CORPUSCULAR HEMOGLOBIN 27.7 pg (27.0-31.0); MEAN PLATELET VOLUME 9.8 fL (7.2-11.7); MONO # 0.7 K/uL (0.0-0.8); NEUT # 5.6 K/uL (1.8-7.0); NEUT % 49.8 % (50.0-75.0); NRBC % 0.2 % (0.0-2.0); RBC 4.67 Mil/uL (4.40-5.90); RED CELL DISTRIBUTION WIDTH 14.3 % (11.5-14.5); WHITE BLOOD COUNT 11.2 K/uL (4.8-10.8)
[2017-11-20 23:09] LABS: ALB/GLOB RATIO 1.1 (1.0-2.1); ALBUMIN 4.2 g/dL (3.5-5.0); ALT/SGPT 61 U/L (21-72); AST/SGOT 37 U/L (17-59); BLOOD UREA NITROGEN 11 mg/dL (9-20); CALCIUM 8.8 mg/dl (8.6-10.4); GFR AFRICAN-AMERICAN > 60; GFR NON-AFRICAN AMERICAN > 60
[2017-11-20 23:28] LABS: URINE BACTERIA RARE (<OCC); URINE BILIRUBIN NEGATIVE (NEGATIVE); URINE BLOOD NEGATIVE (NEGATIVE); URINE CLARITY Hazy (Clear); URINE COLOR Amber (YELLOW); URINE GLUCOSE (UA) NORMAL (Normal); URINE HYALINE CAST 0-2 /lpf (0-2); URINE LEUKOCYTE ESTERASE NEG Leu/uL (Negative); URINE PROTEIN 1+ mg/dL (NEGATIVE)
[2017-11-20 23:45] LABS: BARBITURATES, UR NEGATIVE (NEGATIVE); PHENCYCLIDINE, UR NEGATIVE (NEGATIVE)
[2017-11-20 23:46] LABS: BENZODIAZEPINES, UR POSITIVE (NEGATIVE); OPIATES, UR POSITIVE (NEGATIVE)
--- NOTE | 2017-11-21 01:03 | PCM.BM ---
<Arsen Prado - Last Filed: 11/21/17 01:01> Treatment Plan Problems - Problems identified on initial assessmt DEPRESSION Date Initiated: 11/21/17 Time Initiated: 00:35 Assessment reference: NA Status: Active SUBSTANCE ABUSE Date Initiated: 11/21/17 Time Initiated: 00:45 Assessment reference: NA Status: Active Treatment assets and liabiliti Patient Assests: cooperative, self-reliant, ADL independent, good support system , negotiates basic needs Patient Liabilities: financial problems, relationship conflicts, substance abuse , medical problems - Milieu Protocol Maintain good personal hygiene: daily Encourage regular showers, daily Remind patient to perform daily oral care, daily Assist patient to perform ADL's Maintain personal safety: every shift Educate patient to report safety concerns to staff, every shift Monitor environment for contraband/sharps Medication safety: Monitor for expected outcome, potential side effects: every shift, Assess barriers to learning: every shift, Assess readiness for medication education: every shift <King Torre - Last Filed: 11/21/17 13:11> - Diagnosis (1) Major depression Status: Acute Interventions: 11/21/17 13:11 * Assess/adjust medications daily and /or as needed * See patient on an individual basis 7x/week to assess symptoms of depression * Monitor for side effects & effectiveness of medications * (2) Opioid use disorder, severe, dependence Status: Acute Interventions: 11/21/17 13:12 * Assess 7x/week regarding severity of withdrawal * Educate regarding risks, benefits, side effects and alternatives of medications * Use Motivational Interviewing for abstinence * Use CBT for relapse prevention * Medication management for withdrawal symptoms * Encourage medication assisted treatment * <Fadumo Kellogg - Last Filed: 11/21/17 15:40> Family Contact Family involvement: Patient does not wish Family/SO involvement Family contact: Patient declines to allow family contact at present - Goals for Treatment Patient goals for treatment: "I do not know the type of treatment I want." Discharge/Continuing Care - Education Needs Education Needs: Patient Medication, Patient Diagnosis/Disease Process, Patient Coping Skills, Patient Placement options, Patient Community resources - Discharge Discharge Criteria: Free of Suicidal thoughts, Normal sleep pattern, Ability to care for self, No longer exhibiting s/s of withdrawal, Reduction of target symptoms Discharge to:: Substance Abuse Rehab, Other - Treatment Team Participation Discussed with Family/SO: No Was Patient/Family/SO present at Treatment Team Meeting: Yes
[2017-11-21] MEDS ORDERED: Aluminum Hydroxide/Magnesium Hydroxide Susp (30 mL) PO PRN (11:14)
--- NOTE | 2017-11-21 11:14 | PCM.PSYCH ---
Initial Psychiatric Evaluation - Initial Psychiatric Evaluation Type of Admission: Voluntary Legal Status: Capacity Chief Complaint (in patient's own words): "I am having thoughts of killing myself." History of Present Illness and Precipitating Events: Pt was evaluated in room. Chart was reviewed with the nursing staff. Pt is 42 year old male who presented to the ED for evaluation of S/I saying that he is "tired of life." Pt is withdrawn and in bed. He does not want to interact and has trouble answering questions. Pt states that he was recently from his with whom he has a 22 year old son. He is now living with a friend in . Per nursing report, pt's father of cancer 1 month ago but pt did not want to discuss this information. Pt was discharged from a month ago. Pt states that he feels depressed, with decreased energy and concentration, feelings of guilt, and increased sleep for the past 2 years. Pt reports that this is because of "being around the wrong people." Pt says that he had S/I but no plan and that he said that in the ED because he "just needed help." Pt confirms that he feels anxious and says that his mind is racing about everything in his life but does not elaborate. Pt denies H/I, A/H, V/H, or paranoia. Pt toxicology tested positive for benzos, marijuana, cocaine, heroine , and methadone. Pt was drowsy and asked to continue discussion tomorrow as he was not up for it today so more details were not obtained. Pt is depressed and needs time to stabilize on medications. Current Medications: Active Medications Generic Name Dose Route Start Last Admin Trade Name Freq PRN Reason Stop Dose Admin Hydroxyzine HCl 25 mg 11/21/17 00:49 Atarax PO Q6 PRN Anxiety Pneumococcal Polyvalent Vaccine 0.5 ml 11/22/17 10:00 Pneumovax 23 Vaccine IM 11/22/17 10:01 .ONCE ONE Trazodone HCl 50 mg 11/21/17 00:49 Desyrel PO HS PRN Sleep Past Psychiatric History - Past Psychiatric History Previous Treatment History: Inpatient Prior Professional Help: [facility] Pertinent Medical Hx (Current Medical&Sleep Prob, Allergies): Allergies Allergy/AdvReac Type Severity Reaction Status Date / Time No Known Allergies Allergy Verified 11/20/17 22:28 Lisinopril [Zestril] 20 mg PO DAILY 11/20/17 Review of Systems - Review of Systems All systems: reviewed and no additional remarkable complaints except - Psychiatric Psychiatric: Abnormal Sleep Pattern, Anhedonia, Anxiety, Depression, Difficulty Concentrating, Hopelessness, Panic Attacks, Suicidal Ideation. absent: Auditory Hallucinations, Hallucinations, Homicidal Ideation, Visual Hallucinations, Tactile Hallucinations Mental Status Examination - Personal Presentation Personal Presentation: Looks stated age - Affect Affect: Constricted, Blunted, Depressed - Motor Activity Motor Activity: Psychomotor Retardation - Reliability in Providing Information Reliability in Providing Information: Fair, Poor, due to altered mood - Speech Speech: Organized - Mood Mood: Depressed, Anxious - Formal Thought Process Formal Thought Process: No Impairment - Obsessions/Compulsions Obsessions: No Compulsions: No - Cognitive Functions Orientation: Person, Place, Situation Sensorium: Alert Attention/Concentration: Attentive Abstract Thinking: [place] Estimate of Intelligence: Below average Judgement: Imparied, as evidence by: Poor judgement, Imparied, as evidence by: Lack of insight into illness - Risk Risk: Suicidal, Withdrawal, Diminished functioning - Limitations Limitations: Living alone DSM 5 DX - DSM 5 DSM 5 Diagnosis: Major depressive disorder recurrent severe without psychotic features Opiate use disorder severe Opiate withdrawal uncomplicated Cocaine use disorder severe Cannabis use disorder severe - Recommended/Plan of Treatment Treatment Recommendations and Plan of Treatment: Major depressive disorder recurrent severe without psychotic features CBT Psychoeducation Supportive therapy, group therapy Zoloft 50 mg by mouth daily Gabapentin for augmentation Trazodone for insomnia Hydroxyzine for anxiety Opiate use disorder severe CBT Psychoeducation Supportive therapy, individual therapy Use [place] for abstinence Opiate withdrawal uncomplicated CBT Psychoeducation Supportive therapy, individual therapy Methadone taper Cocaine use disorder severe CBT Psychoeducation Supportive therapy, individual therapy Use [place] for abstinence Cannabis use disorder severe CBT Psychoeducation Supportive therapy, individual therapy Use [place] for abstinence - Smoking Cessation Smoking Cessation Initiated: No
[2017-11-22] MEDS ORDERED: Pneumococcal 23-Valent Vaccine IM ONE (10:00)
--- NOTE | 2017-11-22 17:45 | PCM.PYCHPN ---
Psychiatric Progress Note - Psychiatric Progress Note Patient seen today, length of contact: 15 minute Patient Chief Complaint: I want to go home. Problems Identified/Issues Discussed: Patient seen, chart reviewed, case discussed with the staff. Issues related to illness and treatment were discussed with the patient and staff. Reported compliant with treatment with no adverse affects. Tolerating treatment very well. Angry and partially cooperative. Mood reported as angry. Affect appropriate. Patient wanted to go home. Education provided and later patient signed 48 hour notice for discharge ending on Friday. Later patient became calm down. Aftercare discussed with the patient. Patient was awake, alert and oriented 3. Denied any delusions, auditory or visual hallucinations, suicidal ideations or homicidal ideations at the time of evaluation. Medical Problems: None reported Diagnostic Results: Reviewed DSM 5 Symptoms Update: Some improvement with treatment Medication Change: No Medical Record Reviewed: Yes Mental Status Examination - Cognitive Function Orientation: Person, Place, Situation, Time Memory: Intact Attention: WNL Concentration: WNL Association: WNL Fund of Knowledge: [facility] Decription of patient's judgement and insights: Fair - Mood Mood: Depressed - Affect Affect: Depressed - Speech Speech: Appropriate - Formal Thought Process Formal Thought Process: No Impairment Psychotic Thoughts and Behaviors: None - Suicidal Ideation Suicidal Ideation: No - Homicidal Ideation Homicidal Ideation: No Goal/Treatment Plan - Goal/Treatment Plan Need for Continued Stay: Remain at risks for inpatient hospitalization, Discharge may exacerbated symptoms, Severe functional impairment Progress Toward Problem(s) and Goals/Treatment Plan: Patient education. Supportive therapy. CBT for relapse prevention. SD for abstinence. Continue treatment as before. Estimated Date of D/C: 11/24/17 - Smoking Cessation Smoking Cessation Initiated: No
[2017-11-23 07:07] VITALS: RESP 16; TEMP 98.3; O2SAT 100
[2017-11-23 15:34] VITALS: BP 133/80; PULSE 63
--- NOTE | 2017-11-23 16:14 | PCM.PYCHDC ---
Mental Status Examination - Mental Status Examination Orientation: Person, Place, Situation, Time Memory: Intact Mood: Neutral Affect: Other (Appropriate) Speech: Soft Attention: WNL Concentration: WNL Association: WNL Fund of Knowledge: WNL Formal Thought Process: No Impairment Description of patient's judgement and insight: Fair Psychotic Thoughts and Behaviors: None Suicidal Ideation: No Current Homicidal Ideation?: No Discharge Summary - Discharge Note Reason for Hospitalization: Major depressive disorder. Opiate use disorder severe. Cannabis use disorder severe. Cocaine use disorder severe. Laboratory Data: Reviewed Consultations:: List each consultation separately and include: 1. Reason for request. 2. Findings. 3. Follow-up Summary of Hospital Course include:: 1. Description of specific treatment plan utilized for patients during their course of treatmen. 2. Summarize the time- course for resolution of acute symptoms and/or regressed behaviors. 3. Describe issues identified and worked on during hospitalization. 4. Describe medication utilized. 5. Describe medical problems identified and treated. 6. Reassessment of suicide risk Summary of Hospital Course: Pt is 42 year old male who presented to the ED for evaluation of S/I saying that he is "tired of life." Pt is withdrawn and in bed. He does not want to interact and has trouble answering questions. Pt states that he was recently from his with whom he has a 22 year old son. He is now living with a friend in . Per nursing report, pt's father of cancer 1 month ago but pt did not want to discuss this information. Pt was discharged from a month ago. Pt states that he feels depressed, with decreased energy and concentration, feelings of guilt, and increased sleep for the past 2 years. Pt reports that this is because of "being around the wrong people." Pt says that he had S/I but no plan and that he said that in the ED because he "just needed help." Pt confirms that he feels anxious and says that his mind is racing about everything in his life but does not elaborate. Pt denies H/I, A/H, V/H, or paranoia. Pt toxicology tested positive for benzos, marijuana, cocaine, heroine , and methadone. Pt was drowsy and asked to continue discussion tomorrow as he was not up for it today so more details were not obtained. During his stay in the hospital patient was started on methadone taper for opiate withdrawal symptoms and other when necessary medications. Patient was also continued on the depression medications. During his stay in the unit patient attended groups. Yesterday patient signed 48 of a notice for discharge ending tomorrow. Today patient was stable, had no withdrawal symptoms, requested for discharge. At the time of evaluation and discharge, patient was awake alert oriented 3, had no delusions, no auditory or visual hallucinations, no suicidal ideations or homicidal ideations. Patient was discharged in a stable condition. - Final Diagnosis (DSM 5) Condition upon Discharge: FAIR Disposition: HOME/ ROUTINE Follow-up Treatment Plan: Patient will go to methadone maintenance treatment program in [place]. - Smoking Cessation Smoking Cessation Medication prescribed: No - Antipsychotic Medications Pt discharged on 2 or more routine antipsychotic medications: No
== END 2017-11-23 17:56 | disposition home or self-care (01) | DRG 430 ==
LOC: C.ER 21:28 → C.5E 11-21 00:15
PROVIDERS: ADMIT Psychiatry & Neurology Psychiatry; ATTEND Psychiatry & Neurology Psychiatry
PROC: GZ3ZZZZ Medication Management (ICD-10-PCS; principal; 2017-11-21)
PROC: HZ59ZZZ Individual Psychotherapy for Substance Abuse Treatment, Supportive (ICD-10-PCS; 2017-11-21)
PROC: HZ2ZZZZ Detoxification Services for Substance Abuse Treatment (ICD-10-PCS; 2017-11-21)
PROC: GZHZZZZ Group Psychotherapy (ICD-10-PCS; 2017-11-21)
PROC: GZ56ZZZ Individual Psychotherapy, Supportive (ICD-10-PCS; 2017-11-21)
PROC: HZ46ZZZ Group Counseling for Substance Abuse Treatment, Psychoeducation (ICD-10-PCS; 2017-11-21)
DX: F33.2 Major depressive disorder, recurrent severe without psychotic features (principal); F11.23 Opioid dependence with withdrawal; F14.20 Cocaine dependence, uncomplicated; F12.20 Cannabis dependence, uncomplicated; R45.851 Suicidal ideations; F17.210 Nicotine dependence, cigarettes, uncomplicated; I10 Essential (primary) hypertension

== ENCOUNTER 2018-01-21 16:34 | Emergency (ER) | payer MEDICAID ==
[2018-01-21 16:34] VITALS: BMI 27.8
[2018-01-21 17:13] VITALS: BP 170/121; PULSE 76; RESP 18; TEMP 98.1; O2SAT 96
--- NOTE | 2018-01-21 19:26 | C.PDOC ---
History Of Present Illness 42 year old male presents to the ED requesting detox from heroin and alcohol abuse. Patient states he is feeling body aches, nausea and cold sweats. Patient is not taking any medication for her high blood pressure. Patient was informed that no beds were available at this time. Patient denies SI/HI, hallucinations, CP, SOB, palpitations, weakness, numbness. Time Seen by Provider: 01/21/18 19:07 Chief Complaint (Nursing): Substance Abuse History Per: Patient History/Exam Limitations: no limitations Onset/Duration Of Symptoms: Hrs Current Symptoms Are (Timing): Still Present Suicide/Self Injury Attempted (Context): None Modifying Factor(s): Alcohol, Other (Heroin) Associated Symptoms: denies: Depression, Suicidal Thoughts, Suicidal Plan Additional History Per: Patient, EMS Past Medical History Reviewed: Historical Data, Nursing Documentation, Vital Signs Vital Signs: Last Vital Signs Temp 98.1 F 01/21/18 17:12 Pulse 76 01/21/18 17:12 Resp 18 01/21/18 17:12 BP 170/121 H 01/21/18 17:12 Pulse Ox 96 01/21/18 17:12 - Medical History PMH: Anxiety, Depression, HTN Denies: Diabetes, Hepatitis, HIV, Chronic Kidney Disease, Seizures, Sexually Transmitted Disease Surgical History: No Surg Hx - [facility] Procedures DETOXIFICATION SERVICES FOR SUBSTANCE ABUSE TREATMENT (11/21/17) GROUP DRAIN TECHNICIAN FOR SUBSTANCE ABUSE TREATMENT, PSYCHOEDUCATION (11/21/17) GROUP PSYCHOTHERAPY (11/21/17) INDIV DRAIN TECHNICIAN FOR SUBSTANCE ABUSE, COGNITIVE BEHAVIORAL (10/24/16) INDIV DRAIN TECHNICIAN FOR SUBSTANCE ABUSE, MOTIVATIONAL ENHANCE (10/24/16) INDIV PSYCHOTHERAPY FOR SUBSTANCE ABUSE TREATMENT, SUPPORT (11/21/17) INDIV PSYCHOTHERAPY FOR SUBSTANCE ABUSE, COGNITIV BEHAVIORAL (10/24/16) INDIV PSYCHOTHERAPY FOR SUBSTANCE ABUSE, PSYCHOEDUCATION (10/24/16) INDIVIDUAL PSYCHOTHERAPY, SUPPORTIVE (11/21/17) MEDICATION MANAGEMENT (11/21/17) Family History: States: Unknown Family Hx - Social History Hx Tobacco Use: Yes Hx Alcohol Use: Yes Hx Substance Use: Yes (heroin use) - Immunization History Hx Tetanus Toxoid Vaccination: No Hx Influenza Vaccination: Yes Hx Pneumococcal Vaccination: No Review Of Systems Constitutional: Positive for: Sweats. Negative for: Fever, Chills Cardiovascular: Negative for: Chest Pain Respiratory: Negative for: Cough, Shortness of Breath Gastrointestinal: Positive for: Nausea. Negative for: Vomiting, Abdominal Pain Neurological: Negative for: Weakness, Numbness, Headache Psych: Positive for: Withdrawal. Negative for: Depression, Suicidal ideation Physical Exam - Physical Exam Appears: Non-toxic, No Acute Distress Skin: Normal Color, Warm, Dry Head: Atraumatic, Normacephalic Eye(s): bilateral: Normal Inspection Neck: Normal ROM, Supple Chest: Symmetrical Cardiovascular: Rhythm Regular Respiratory: Normal Breath Sounds, No Rales, No Rhonchi, No Wheezing Gastrointestinal/Abdominal: Soft, No Tenderness, No Guarding, No Rebound Extremity: Normal ROM, No Tenderness, No Swelling Neurological/Psych: Oriented x3, Normal Speech, Normal Cognition Gait: Steady ED Course And Treatment O2 Sat by Pulse Oximetry: 96 (ON RA) Pulse Ox Interpretation: Normal Progress - Re-Evaluation Re-evaluation Note: 01/21/18 19:26 D/W CRISIS WILL EVAL FOR DETOX 01/21/18 19:31 PT [facility] PRIOR TO CRISIS EVAL, MED ADMINISTRATION. NOT PRESENT IN ER Medical Decision Making Medical Decision Making: Patient eloped from the ED after he was informed no detox beds were available. Disposition Counseled Patient/Family Regarding: Diagnosis - Disposition Disposition: ELOPEMENT - ER ONLY Disposition Time: 19:31 Condition: STABLE Forms: [facility] ([employer]) - Clinical Impression Clinical Impression: Polysubstance abuse, Hypertension - Scribe Statement The provider has reviewed the documentation as recorded by the Scribe Liang Romeo All medical record entries made by the Scribe were at my direction and personally dictated by me. I have reviewed the chart and agree that the record accurately reflects my personal performance of the history, physical exam, medical decision making, and the department course for this patient. I have also personally directed, reviewed, and agree with the discharge instructions and disposition.
== END 2018-01-21 19:35 | disposition left against medical advice (07) ==
LOC: C.ER 16:34
DX: F19.10 Other psychoactive substance abuse, uncomplicated (principal); I10 Essential (primary) hypertension; F17.210 Nicotine dependence, cigarettes, uncomplicated

== ENCOUNTER 2018-01-21 23:31 | Inpatient (IN) | payer MEDICAID ==
[2018-01-21 23:32] VITALS: BMI 27.8
--- NOTE | 2018-01-22 00:27 | C.PDOC ---
History Of Present Illness 42 year old male presents to the ED for the second time today. Patient was seen earlier requesting detox, no bed were available and patient was discharged. Patient now comes back stating he wants to kill himself. Patient denies HI, h allucinations, other medical complaints. Chief Complaint (Nursing): Psychiatric Evaluation History Per: Patient History/Exam Limitations: no limitations Onset/Duration Of Symptoms: Hrs Current Symptoms Are (Timing): Still Present Suicide/Self Injury Attempted (Context): Other Modifying Factor(s): Alcohol, Narcotics Associated Symptoms: Depression, Suicidal Thoughts. denies: Suicidal Plan Recent travel outside of the [place]: No Additional History Per: Patient Past Medical History Reviewed: Historical Data, Nursing Documentation, Vital Signs Vital Signs: Last Vital Signs Temp 99.1 F 01/21/18 23:59 Pulse 77 01/21/18 23:59 Resp 20 01/21/18 23:59 BP 145/100 H 01/21/18 23:59 Pulse Ox 97 01/21/18 23:59 - Medical History PMH: Anxiety, Depression, HTN Denies: Diabetes, Hepatitis, HIV, Chronic Kidney Disease, Seizures, Sexually Transmitted Disease Surgical History: No Surg Hx - [facility] DETOXIFICATION SERVICES FOR SUBSTANCE ABUSE TREATMENT (11/21/17) GROUP TOBACCO EDUCATOR FOR SUBSTANCE ABUSE TREATMENT, PSYCHOEDUCATION (11/21/17) GROUP PSYCHOTHERAPY (11/21/17) INDIV TOBACCO EDUCATOR FOR SUBSTANCE ABUSE, COGNITIVE BEHAVIORAL (10/24/16) INDIV TOBACCO EDUCATOR FOR SUBSTANCE ABUSE, MOTIVATIONAL ENHANCE (10/24/16) INDIV PSYCHOTHERAPY FOR SUBSTANCE ABUSE TREATMENT, SUPPORT (11/21/17) INDIV PSYCHOTHERAPY FOR SUBSTANCE ABUSE, COGNITIV BEHAVIORAL (10/24/16) INDIV PSYCHOTHERAPY FOR SUBSTANCE ABUSE, PSYCHOEDUCATION (10/24/16) INDIVIDUAL PSYCHOTHERAPY, SUPPORTIVE (11/21/17) MEDICATION MANAGEMENT (11/21/17) Family History: States: Unknown Family Hx - Social History Hx Tobacco Use: Yes Hx Alcohol Use: Yes Hx Substance Use: Yes (heroin use) - Immunization History Hx Tetanus Toxoid Vaccination: No Hx Influenza Vaccination: Yes Hx Pneumococcal Vaccination: No Review Of Systems Constitutional: Negative for: Fever, Chills Cardiovascular: Negative for: Chest Pain Respiratory: Negative for: Shortness of Breath Gastrointestinal: Negative for: Nausea, Vomiting Neurological: Negative for: Weakness, Numbness Psych: Positive for: Depression, Suicidal ideation Physical Exam - Physical Exam Appears: Non-toxic, No Acute Distress Skin: Normal Color, Warm, Dry Head: Atraumatic, Normacephalic Eye(s): bilateral: Normal Inspection Neck: Normal ROM, Supple Chest: Symmetrical Cardiovascular: Rhythm Regular Respiratory: Normal Breath Sounds, No Rales, No Rhonchi, No Wheezing Gastrointestinal/Abdominal: Soft, No Tenderness, No Guarding, No Rebound Extremity: Normal ROM, No Tenderness, No Swelling Neurological/Psych: Oriented x3, Normal Speech, Normal Cognition Gait: Steady ED Course And Treatment - Laboratory Results Result Diagrams: 01/22/18 00:58 01/22/18 00:58 O2 Sat by Pulse Oximetry: 97 (ON RA) Pulse Ox Interpretation: Normal Medical Decision Making Medical Decision Making: Plan: * Labs * UA Disposition Discussed With : Tiff Harley Doctor Will See Patient In The: Hospital Counseled Patient/Family Regarding: Diagnosis - Disposition Disposition: HOSPITALIZED Disposition Time: 04:14 Condition: STABLE Forms: [facility] ([place]) - POA Present On Arrival: None - Clinical Impression Clinical Impression: Depressive disorder, Opioid abuse with opioid-induced disorder, Alcohol abuse with alcohol-induced disorder - Scribe Statement The provider has reviewed the documentation as recorded by the Scribe Liang Romeo All medical record entries made by the Scribe were at my direction and personally dictated by me. I have reviewed the chart and agree that the record accurately reflects my personal performance of the history, physical exam, medical decision making, and the department course for this patient. I have also personally directed, reviewed, and agree with the discharge instructions and disposition.
[2018-01-22 01:04] LABS: URINE BILIRUBIN NEGATIVE (NEGATIVE); URINE BLOOD NEGATIVE (NEGATIVE); URINE CLARITY Clear (Clear); URINE COLOR Straw (YELLOW); URINE GLUCOSE (UA) NORMAL (Normal); URINE LEUKOCYTE ESTERASE NEG Leu/uL (Negative); URINE PROTEIN NEGATIVE (NEGATIVE); URINE UROBILINOGEN NORMAL mg/dL (0.2-1.0)
[2018-01-22 01:22] LABS: BASO # 0.1 K/uL (0.0-0.2); BASO % 0.7 % (0.0-2.0); EOS # 0.4 K/uL (0.0-0.7); EOS % 3.5 % (0.0-4.0); LYMPH # 5.5 K/uL (1.0-4.3); LYMPH % 48.5 % (20.0-40.0); MEAN CELL VOLUME 78.1 fL (80.0-94.0); MEAN CORPUSCULAR HEMOGLOBIN 27.1 pg (27.0-31.0); MEAN CORPUSCULAR HGB CONC 34.7 g/dL (33.0-37.0); MONO # 0.5 K/uL (0.0-0.8); MONO % 4.6 % (0.0-10.0); NEUT # 4.9 K/uL (1.8-7.0); NEUT % 42.7 % (50.0-75.0); RBC 5.16 Mil/uL (4.40-5.90); RED CELL DISTRIBUTION WIDTH 14.4 % (11.5-14.5); WHITE BLOOD COUNT 11.4 K/uL (4.8-10.8)
[2018-01-22 01:39] LABS: ALB/GLOB RATIO 1.2 (1.0-2.1); ALBUMIN 4.7 g/dL (3.5-5.0); ALT/SGPT 92 U/L (21-72); AST/SGOT 97 U/L (17-59); BLOOD UREA NITROGEN 10 mg/dL (9-20); CALCIUM 9.4 mg/dl (8.6-10.4); GFR NON-AFRICAN AMERICAN > 60
[2018-01-22 02:16] LABS: BARBITURATES, UR NEGATIVE (NEGATIVE); BENZODIAZEPINES, UR NEGATIVE (NEGATIVE)
[2018-01-22 02:19] LABS: PHENCYCLIDINE, UR POSITIVE (NEGATIVE)
[2018-01-22 02:27] LABS: OPIATES, UR POSITIVE (NEGATIVE)
--- NOTE | 2018-01-22 05:35 | PCM.BM ---
<Carmen Jackson - Last Filed: 01/22/18 05:33> Treatment Plan Problems - Problems identified on initial assessmt Depression Date Initiated: 01/22/18 Time Initiated: 05:33 Assessment reference: NA Status: Active Substance abuse Date Initiated: 01/22/18 Time Initiated: 05:34 Assessment reference: NA Status: Active Treatment assets and liabiliti Patient Assests: cooperative, self-reliant, ADL independent, physically healthy, negotiates basic needs Patient Liabilities: substance abuse - Milieu Protocol Maintain good personal hygiene: daily Encourage regular showers, daily Remind patient to perform daily oral care, daily Assist patient to perform ADL's Maintain personal safety: every shift Educate patient to report safety concerns to staff, every shift Monitor environment for contraband/sharps Medication safety: Monitor for expected outcome, potential side effects: every shift, Assess barriers to learning: every shift, Assess readiness for medication education: every shift <Jason Negron - Last Filed: 01/25/18 22:12> - Diagnosis (1) Major depressive disorder, recurrent severe without psychotic features Status: Acute Interventions: 01/25/18 22:09 Assess/adjust medications daily and /or as needed See patient on an individual basis 7x/week to assess symptoms of depression Monitor for side effects & effectiveness of medications (2) Opioid use disorder, severe, dependence Status: Acute Interventions: 01/25/18 22:10 Assess 7x/week regarding severity of withdrawal Educate regarding risks, benefits, side effects and alternatives of medications Use Motivational Interviewing for abstinence Use CBT for relapse prevention Medication management for withdrawal symptoms Encourage medication assisted treatment (3) Alcohol use disorder, severe, dependence Status: Acute Interventions: 01/25/18 22:11 Assess 7x/week regarding severity of withdrawal Educate regarding risks, benefits, side effects and alternatives of medications Use Motivational Interviewing for abstinence Use CBT for relapse prevention Medication management for withdrawal symptoms Encourage medication assisted treatment (4) Cocaine use disorder, severe, dependence Status: Acute Interventions: 01/25/18 22:11 Assess 7x/week regarding severity of withdrawal Educate regarding risks, benefits, side effects and alternatives of medications Use Motivational Interviewing for abstinence Use CBT for relapse prevention Medication management for withdrawal symptoms Encourage medication assisted treatment (5) Stimulant use disorder Status: Acute Interventions: 01/25/18 22:11 Assess 7x/week regarding severity of withdrawal Educate regarding risks, benefits, side effects and alternatives of medications Use Motivational Interviewing for abstinence Use CBT for relapse prevention Medication management for withdrawal symptoms Encourage medication assisted treatment
[2018-01-22] MEDS ORDERED: Aluminum Hydroxide/Magnesium Hydroxide Susp (30 mL) PO PRN (17:01)
--- NOTE | 2018-01-22 17:57 | PCM.PSYCH ---
Initial Psychiatric Evaluation - Initial Psychiatric Evaluation Type of Admission: Voluntary Legal Status: Capacity Chief Complaint (in patient's own words): I need help for my drug use) depression. History of Present Illness and Precipitating Events: Pt is 42 year old male who presented to the ED for evaluation of S/I. Pt was withdrawn and difficult to obtain any history from the patient. He does not want to interact and was angry. Pt states that he was recently from his with whom he has a 22 year old son. He is now living with his mother. Per nursing report, pt's father of cancer 1 month ago but pt did not want to discuss this information. Pt was discharged from about 2 months ago. Pt states that he feels depressed, with decreased energy and concentration, feelings of guilt, and increased sleep for the past 2 years. Pt reports that this is because of "being around the wrong people." Pt says that he had S/I but no plan and that he said that in the ED because he "just needed help. Pt denies S/I, H/I, A/H, V/H, or paranoia at the time of evaluation. Pt toxicology tested positive for Cannabis, cocaine, Opioids, alcohol and PCP. Opioids:Patient started using heroin at 17 years of age, increased gradually, currently he was using 2 bundles of heroin daily, IV. Last used yesterday. His longest period of abstinence was 3 years in the past. Reported history of 5 previous detox in 1 rehab. Alcohol: Started at 14 years of age, increase gradually, currently he was drinking 1-2 pints of alcohol daily. Last drink yesterday. Patient also has history of cocaine, cannabis and PCP use. Patient was reluctant to provide more details about these drugs. He smokes 7 cigarettes daily and refused to get nicotine patch. Patient was born in [place], has GED, not working since 2005. He is and has 1 grownup son, lives with mother. His height is 5 feet 11 inches and weight is 180 pounds. Patient wants to go to rehab for follow-up care after discharge from the hospital. Current Medications: Active Medications Generic Name Dose Route Start Last Admin Trade Name Freq PRN Reason Stop Dose Admin Al Hydrox/Mg Hydrox/Simethicone 30 ml 01/22/18 17:01 Maalox 30 Ml PO TID PRN Indigestion / Heartburn Chlordiazepoxide 0 mg 01/22/18 18:00 01/22/18 17:24 Librium PO 01/26/18 17:59 25 mg Q6 TANNA Administration Taper Chlordiazepoxide 25 mg 01/22/18 17:02 Librium PO Q4H PRN Alcohol Withdrawal Clonidine HCl 0.1 mg 01/22/18 17:01 Catapres PO Q8 PRN COWS Score More or Equal to 5 Dicyclomine HCl 20 mg 01/22/18 17:09 Bentyl PO Q6 PRN Abdominal Cramps Folic Acid 1 mg 01/22/18 17:15 Folic Acid PO DAILY TANNA Ibuprofen 600 mg 01/22/18 17:09 Motrin Tab PO Q6 PRN Pain, moderate (4-7) Influenza Virus Vaccine 60 mcg 01/25/18 04:54 Fluzone Quad [id number] IM 01/25/18 04:55 .ONCE ONE Loperamide HCl 2 mg 01/22/18 17:01 Imodium PO Q8 PRN Diarrhea Methadone HCl 0 mg 01/23/18 10:00 Methadone PO 01/26/18 09:59 Q24H TANNA Taper Multivitamins 1 tab 01/22/18 17:15 Hexavitamin PO DAILY TANNA Ondansetron HCl 4 mg 01/22/18 17:01 Zofran Tab PO Q8 PRN Nausea/Vomiting Thiamine HCl 100 mg 01/22/18 17:15 Vitamin B1 Tab PO DAILY TANNA Trazodone HCl 100 mg 01/22/18 22:00 Desyrel PO HS PRN Insomnia Past Psychiatric History - Past Psychiatric History Previous Treatment History: Inpatient History of Abuse: None reported History of ETOH/Drug Use: See HPI History of Family Illness: Reported history of cocaine and heroin use in his father. Pertinent Medical Hx (Current Medical&Sleep Prob, Allergies): Allergies Allergy/AdvReac Type Severity Reaction Status Date / Time No Known Allergies Allergy Verified 01/21/18 17:11 No Known Home Med 01/21/18 Hypertension Review of Systems - Psychiatric Psychiatric: As Per HPI, Depression Mental Status Examination - Personal Presentation Personal Presentation: Looks stated age - Affect Affect: Depressed - Motor Activity Motor Activity: Other (Little irritable) - Reliability in Providing Information Reliability in Providing Information: Fair - Speech Speech: Relevant - Mood Mood: Depressed - Formal Thought Process Formal Thought Process: No Impairment - Hallucinations/Delusions Hallucinations: Other (None reported) Delusions: Other - Obsessions/Compulsions Obsessions: None Compulsions: None - Cognitive Functions Orientation: Person, Place, Situation, Time Sensorium: Alert Attention/Concentration: Attentive Abstract Thinking: [place] Estimate of Intelligence: Average Judgement: Intact, as evidence by: Insight regarding need for hospitalization Memory: Recent intact, as evidence by: Ability to recall events of the day, Remote intact, as evidenced by: Ability to recall historical events - Risk Risk: Withdrawal, Diminished functioning - Strength & Assets Inventory Strength & Assets Inventory: Family support, Cooperative - Limitations Limitations: Other (Lives with mother) DSM 5 DX - DSM 5 DSM 5 Diagnosis: Major depressive disorder recurrent severe without psychotic features. Opioid use disorder severe. Alcohol use disorder severe. Stimulant use disorder severe. Cocaine use disorder severe. - Recommended/Plan of Treatment Treatment Recommendations and Plan of Treatment: Patient/staff education. Supportive therapy. CBT for relapse prevention. [place] 4 absent. We will start methadone taper for opiate withdrawal symptoms. Other as needed medications. Projected ELOS: 8-10 days - Smoking Cessation Smoking Cessation Initiated: No Reason for not providing: Patient refused
[2018-01-22] MEDS: Multiple Vitamins Tab PO SCH ×2 (18:14→18:18)
[2018-01-23] MEDS: Multiple Vitamins Tab PO SCH (09:24)
--- NOTE | 2018-01-23 19:21 | PCM.PYCHPN ---
Psychiatric Progress Note - Psychiatric Progress Note Patient seen today, length of contact: 15 minutes Patient Chief Complaint: I am feeling little better. Problems Identified/Issues Discussed: Patient seen, chart reviewed, case discussed with the staff. Issues related to illness and treatment were discussed with the patient and staff. Reported compliant with treatment with no adverse effect. Tolerating treatment very well. Staff reported that patient was irritable before. Discussed this issue with the patient, patient denied. Reported feeling better with the treatment. Calm and cooperative. Aftercare discussed with the patient. Patient was awake, alert and oriented x3. Next Entry time of evaluation, patient denied any delusions, no auditory or visual hallucinations, no suicidal ideations or homicidal ideations. Medical Problems: Hypertension Diagnostic Results: Reviewed DSM 5 Symptoms Update: Some improvement with treatment. Medication Change: No Medical Record Reviewed: Yes Mental Status Examination - Cognitive Function Orientation: Person, Place, Situation, Time Memory: Intact Attention: WNL Concentration: WNL Association: WNL Fund of Knowledge: WN Decription of patient's judgement and insights: Fair - Mood Mood: Depressed - Affect Affect: Depressed - Speech Speech: Appropriate - Formal Thought Process Formal Thought Process: No Impairment Psychotic Thoughts and Behaviors: None - Suicidal Ideation Suicidal Ideation: No - Homicidal Ideation Homicidal Ideation: No Goal/Treatment Plan - Goal/Treatment Plan Need for Continued Stay: Remain at risks for inpatient hospitalization, Discharge may exacerbated symptoms, Severe functional impairment Progress Toward Problem(s) and Goals/Treatment Plan: Patient education. Supportive therapy. CBT for left prevention. AK for abstinence. Continue treatment as before. Patient wants to go to rehab for follow-up care after discharge from the hospital. Estimated Date of D/C: 01/29/18 - Smoking Cessation Smoking Cessation Initiated: No Reason for not providing: Patient does not smoke cigarette
[2018-01-24] MEDS: Multiple Vitamins Tab PO SCH (09:44)
[2018-01-25] MEDS ORDERED: Influenza Vaccine 60 MCG/0.5 ML SYR (3 yr & up) IM ONE (04:54)
[2018-01-25 06:50] VITALS: BP 137/90; PULSE 58; RESP 18; TEMP 98.6; O2SAT 100
[2018-01-25] MEDS: Multiple Vitamins Tab PO SCH (10:16)
--- NOTE | 2018-01-26 06:52 | PCM.PYCHPN ---
Psychiatric Progress Note - Psychiatric Progress Note Patient seen today, length of contact: 15 minutes Patient Chief Complaint: I DON'T NEDED TO BE HERE Problems Identified/Issues Discussed: PT SEEN AND ERXAMINED D/W TEAM D/W PT BENEFITS OF REMAINING IN THE HOSPITAL PT HAD SIGNED A 48 HR NOTICE Medical Problems: NOTHING ACUTE Diagnostic Results: REVIEWED Medication Change: No Medical Record Reviewed: Yes Mental Status Examination - Cognitive Function Orientation: Person, Place, Situation, Time Memory: Intact Concentration: WNL Association: [facility] Fund of Knowledge: WN - Mood Mood: Depressed - Affect Affect: Depressed, Other (IRRITABLE) - Speech Speech: Appropriate - Formal Thought Process Formal Thought Process: No Impairment - Suicidal Ideation Suicidal Ideation: No - Homicidal Ideation Homicidal Ideation: No Goal/Treatment Plan - Goal/Treatment Plan Need for Continued Stay: Discharge may exacerbated symptoms, Severe functional impairment Progress Toward Problem(s) and Goals/Treatment Plan: Caren STAPLES OR CBT GROUP MILIEU RECREATIONAL THERAPY SUPPORTIVE PSYCHOTHERAPY OPIOID WITHDRAWAL METHADONE TAPER OPIOID USE DISORDER OR CBT SUPPORTIVE PSYCHOTHERAPY PSYCHOEDUCATION Estimated Date of D/C: 01/29/18 - Smoking Cessation Smoking Cessation Initiated: No
[2018-01-26] MEDS ORDERED: Influenza Vaccine 60 MCG/0.5 ML SYR (3 yr & up) IM ONE (10:00)
== END 2018-01-25 11:00 | disposition home or self-care (01) | DRG 430 ==
LOC: C.ER 23:31 → C.5E 01-22 04:17
PROVIDERS: ADMIT Psychiatry & Neurology Psychiatry; ATTEND Psychiatry & Neurology Psychiatry
PROC: GZHZZZZ Group Psychotherapy (ICD-10-PCS; principal; 2018-01-22)
PROC: GZ56ZZZ Individual Psychotherapy, Supportive (ICD-10-PCS; 2018-01-22)
DX: F33.2 Major depressive disorder, recurrent severe without psychotic features (principal); F11.23 Opioid dependence with withdrawal; F14.10 Cocaine abuse, uncomplicated; R45.851 Suicidal ideations; F17.210 Nicotine dependence, cigarettes, uncomplicated; I10 Essential (primary) hypertension; F10.20 Alcohol dependence, uncomplicated; F19.10 Other psychoactive substance abuse, uncomplicated; Y90.6 Blood alcohol level of 120-199 mg/100 ml